=== PATIENT | female | born 1990 | race Caucasian/White ===

== ENCOUNTER 2017-10-02 16:43 | Emergency (ER) | payer OTHER ==
[2017-10-02 17:19] VITALS: BP 140/86
== END 2017-10-02 17:19 | disposition home or self-care (01) ==
LOC: ED 16:43
DX: S80.861A Insect bite (nonvenomous), right lower leg, initial encounter (principal); L08.9 Local infection of the skin and subcutaneous tissue, unspecified; W57.XXXA Bitten or stung by nonvenomous insect and other nonvenomous arthropods, initial encounter; Y93.89 Activity, other specified; Y92.89 Other specified places as the place of occurrence of the external cause; Y99.8 Other external cause status

== ENCOUNTER 2018-04-15 16:44 | Emergency (ER) | payer OTHER ==
[~2018-04-15] VITALS: Ht 160 cm; Wt 64.0 kg
[2018-04-15 16:49] VITALS: Ht 160 cm; Wt 64.0 kg
[2018-04-15 17:08] VITALS: BP 111/69
== END 2018-04-15 17:08 | disposition home or self-care (01) ==
LOC: ED 16:44
DX: S71.111A Laceration without foreign body, right thigh, initial encounter (principal); W22.8XXA Striking against or struck by other objects, initial encounter; Y93.89 Activity, other specified; Y92.89 Other specified places as the place of occurrence of the external cause; Y99.8 Other external cause status
CPT/HCPCS: 90715